=== PATIENT | male | born 1955 | race Native Hawaiian/Other Pacific Islander ===

== ENCOUNTER → 2019-07-06 | Outpatient (CLI) | payer MEDICARE, OTHER ==
[2019-06-17 19:40] VITALS: BP 169/104
[~2019-07-06] MED LIST: HYDROCHLOROTH12.5 M2 PO
[2019-07-06 11:30] LABS: BASO # 0.1 (0.02-0.10); EOS # 0.2 (0.04-0.40); EOS % 3.4 % (0.0-4.0); HEMATOCRIT 48.8 % (42.0-52.0); HEMOGLOBIN 16.9 g/dL (13.5-18.0); MEAN CELL VOLUME 90 fl (78-100); MEAN CORPUSCULAR HEMOGLOBIN 31 pg (27-31); MEAN CORPUSCULAR HGB CONC 35 g/dL (33-37); MEAN PLATELET VOLUME 9.8 fl (7.4-10.4); MONO # 0.7 (0.20-0.80); PLATELET COUNT 237 K/mm3 (130-400); RED BLOOD COUNT 5.41 M/mm3 (4.20-5.60); RED CELL DISTRIBUTION WIDTH 12.6 % (11.5-14.5)
[2019-07-06 11:38] LABS: POTASSIUM 3.6 mmol/L (3.5-5.1)
[2019-07-06 11:39] LABS: ALBUMIN 4.3 g/dL (3.4-4.8)
[2019-07-06 11:40] LABS: CALCIUM 9.6 mg/dL (8.3-10.5)
[2019-07-06 11:41] LABS: TOTAL PROTEIN 8.2 g/dL (6.2-8.1)
[2019-07-06 11:43] LABS: TOTAL BILIRUBIN 0.7 mg/dL (0.2-1.2)
[2019-07-06 12:33] LABS: ERYTHROCYTE SEDIMENTATION RATE 20 mm/hr (0-20)
== END ==
LOC: LAB 11:12
PROVIDERS: Internal Medicine
DX: Z12.5 Encounter for screening for malignant neoplasm of prostate (principal); Z12.11 Encounter for screening for malignant neoplasm of colon; I16.0 Hypertensive urgency; B19.20 Unspecified viral hepatitis C without hepatic coma; R73.02 Impaired glucose tolerance (oral)

== ENCOUNTER → 2019-10-22 | Outpatient (CLI) | payer MEDICARE, OTHER ==
[2019-06-17 19:40] VITALS: BP 169/104
[2019-10-22 14:35] LABS: POTASSIUM 3.7 mmol/L (3.5-5.1)
[2019-10-22 14:36] LABS: ALBUMIN 4.3 g/dL (3.4-4.8)
[2019-10-22 14:37] LABS: CALCIUM 9.9 mg/dL (8.3-10.5)
[2019-10-22 14:38] LABS: TOTAL PROTEIN 8.1 g/dL (6.2-8.1)
[2019-10-22 14:40] LABS: TOTAL BILIRUBIN 0.8 mg/dL (0.2-1.2)
== END ==
LOC: LAB 14:00
PROVIDERS: Internal Medicine
DX: I16.0 Hypertensive urgency (principal); R73.02 Impaired glucose tolerance (oral)

== ENCOUNTER → 2019-10-30 | Outpatient (CLI) | payer MEDICARE, OTHER ==
[2019-06-17 19:40] VITALS: BP 169/104
[2019-10-30 10:54] LABS: URINE APPEARANCE CLOUDY; URINE BILIRUBIN NEGATIVE (NEGATIVE); URINE BLOOD 250 ery/uL (NEGATIVE); URINE COLOR YELLOW; URINE GLUCOSE NEGATIVE (NEGATIVE); URINE KETONE NEGATIVE (NEGATIVE); URINE LEUKOCYTE ESTERASE NEGATIVE (NEGATIVE); URINE NITRATE NEGATIVE (NEGATIVE); URINE PROTEIN(semi-quant) 1+ mg/dL (NEGATIVE); URINE UROBILINOGEN NORMAL (NORMAL)
== END ==
LOC: LAB 10:30
PROVIDERS: Internal Medicine
DX: R35.0 Frequency of micturition (principal)

== ENCOUNTER → 2020-04-21 | Outpatient (CLI) | payer MEDICARE, OTHER ==
[2019-06-17 19:40] VITALS: BP 169/104
[2020-04-21 15:46] LABS: ALBUMIN 4.3 g/dL (3.4-4.8); POTASSIUM 4.6 mmol/L (3.5-5.1)
[2020-04-21 15:47] LABS: CALCIUM 9.6 mg/dL (8.3-10.5)
[2020-04-21 15:49] LABS: TOTAL PROTEIN 7.8 g/dL (6.2-8.1)
[2020-04-21 15:51] LABS: TOTAL BILIRUBIN 0.6 mg/dL (0.2-1.2)
[2020-04-21 16:00] LABS: BASO # 0.1 (0.02-0.10); EOS # 0.3 (0.04-0.40); EOS % 3.8 % (0.0-4.0); HEMATOCRIT 45.7 % (42.0-52.0); HEMOGLOBIN 15.7 g/dL (13.5-18.0); LYMPH# 2.7 (1.50-4.00); MEAN CELL VOLUME 94 fl (78-100); MEAN CORPUSCULAR HEMOGLOBIN 32 pg (27-31); MEAN CORPUSCULAR HGB CONC 34 g/dL (33-37); MEAN PLATELET VOLUME 9.8 fl (7.4-10.4); MONO # 0.6 (0.20-0.80); NEU # 2.9 (1.40-6.50); PLATELET COUNT 257 K/mm3 (130-400); RED BLOOD COUNT 4.88 M/mm3 (4.20-5.60); RED CELL DISTRIBUTION WIDTH 12.7 % (11.5-14.5); WHITE BLOOD COUNT 6.5 K/mm3 (4.8-10.8)
[2020-04-21 17:16] LABS: URINE APPEARANCE CLOUDY; URINE COLOR PINK
[2020-04-21 17:17] LABS: URINE BILIRUBIN NEGATIVE (NEGATIVE); URINE BLOOD 250 ery/uL (NEGATIVE); URINE GLUCOSE NEGATIVE (NEGATIVE); URINE KETONE NEGATIVE (NEGATIVE); URINE LEUKOCYTE ESTERASE 1+ (NEGATIVE); URINE NITRATE NEGATIVE (NEGATIVE); URINE PROTEIN(semi-quant) 2+ mg/dL (NEGATIVE); URINE UROBILINOGEN NORMAL (NORMAL)
== END ==
LOC: LAB 15:02
PROVIDERS: Internal Medicine
DX: I16.0 Hypertensive urgency (principal); R31.9 Hematuria, unspecified; R73.02 Impaired glucose tolerance (oral)

== ENCOUNTER → 2020-11-15 | Outpatient (CLI) | payer MEDICARE, OTHER ==
[2019-06-17 19:40] VITALS: BP 169/104
[2020-11-15 17:25] LABS: BASO # 0.1 (0.02-0.10); EOS # 0.2 (0.04-0.40); EOS % 3.4 % (0.0-4.0); HEMOGLOBIN 12.5 g/dL (13.5-18.0); LYMPH# 2.4 (1.50-4.00); MEAN CELL VOLUME 87 fl (78-100); MEAN CORPUSCULAR HEMOGLOBIN 27 pg (27-31); MEAN CORPUSCULAR HGB CONC 31 g/dL (33-37); MEAN PLATELET VOLUME 8.7 fl (7.4-10.4); MONO # 0.7 (0.20-0.80); NEU # 3.4 (1.40-6.50); PLATELET COUNT 319 K/mm3 (130-400); RED BLOOD COUNT 4.61 M/mm3 (4.20-5.60); RED CELL DISTRIBUTION WIDTH 13.3 % (11.5-14.5); WHITE BLOOD COUNT 6.8 K/mm3 (4.8-10.8)
[2020-11-15 17:34] LABS: ALBUMIN 4.1 g/dL (3.4-4.8)
[2020-11-15 17:35] LABS: POTASSIUM 4.1 mmol/L (3.5-5.1)
[2020-11-15 17:36] LABS: PROTHROMBIN TIME 9.9 SECONDS (9.0-12.0)
[2020-11-15 17:37] LABS: TOTAL PROTEIN 7.8 g/dL (6.2-8.1)
[2020-11-15 17:39] LABS: TOTAL BILIRUBIN 0.4 mg/dL (0.2-1.2)
[2020-11-15 17:45] LABS: MAGNESIUM 1.81 mg/dL (1.60-2.60)
== END ==
LOC: RAD 16:38
PROVIDERS: Internal Medicine
DX: Z01.818 Encounter for other preprocedural examination (principal)

== ENCOUNTER → 2022-06-26 | Outpatient (CLI) | payer MEDICARE, OTHER ==
[2022-06-26 15:48] LABS: BASO # 0.04 K/mm3 (0.02-0.10); EOS # 0.33 K/mm3 (0.04-0.40); EOS % 4.5 % (0.0-4.0); HEMATOCRIT 42.8 % (42.0-52.0); HEMOGLOBIN 14.4 g/dL (13.5-18.0); LYMPH# 2.37 K/mm3 (1.50-4.00); MEAN CELL VOLUME 97 fl (78-100); MEAN CORPUSCULAR HEMOGLOBIN 33 pg (27-31); MEAN CORPUSCULAR HGB CONC 34 g/dL (33-37); MEAN PLATELET VOLUME 9.1 fl (7.4-10.4); MONO # 0.74 K/mm3 (0.20-0.80); NEU # 3.77 K/mm3 (1.40-6.50); PLATELET COUNT 218 K/mm3 (130-400); RED BLOOD COUNT 4.41 M/mm3 (4.20-5.60); RED CELL DISTRIBUTION WIDTH 12.2 % (11.5-14.5); WHITE BLOOD COUNT 7.3 K/mm3 (4.8-10.8)
[2022-06-26 15:57] LABS: POTASSIUM 4.6 mmol/L (3.5-5.1)
[2022-06-26 15:58] LABS: ALBUMIN 4.2 g/dL (3.4-4.8)
[2022-06-26 15:59] LABS: CALCIUM 9.3 mg/dL (8.3-10.5)
[2022-06-26 16:00] LABS: TOTAL PROTEIN 7.7 g/dL (6.2-8.1)
[2022-06-26 16:02] LABS: TOTAL BILIRUBIN 0.4 mg/dL (0.2-1.2)
[2022-06-26 16:07] LABS: MAGNESIUM 1.89 mg/dL (1.60-2.60)
[2022-06-26 16:52] LABS: ERYTHROCYTE SEDIMENTATION RATE 17 mm/hr (0-20)
== END ==
LOC: LAB 15:32
PROVIDERS: Internal Medicine
DX: I10 Essential (primary) hypertension (principal); R73.03 Prediabetes; E78.2 Mixed hyperlipidemia

== ENCOUNTER → 2024-12-04 | Outpatient (CLI) | payer MEDICARE, OTHER ==
[2024-12-04 12:43] LABS: BASO # 0.05 K/mm3 (0.02-0.10); EOS # 0.31 K/mm3 (0.04-0.40); EOS % 5.4 % (0.0-4.0); HEMATOCRIT 48.1 % (42.0-52.0); HEMOGLOBIN 15.5 g/dL (13.5-18.0); LYMPH# 1.65 K/mm3 (1.50-4.00); MEAN CELL VOLUME 98 fl (78-100); MEAN CORPUSCULAR HEMOGLOBIN 32 pg (27-31); MEAN CORPUSCULAR HGB CONC 32 g/dL (33-37); MEAN PLATELET VOLUME 9.1 fl (7.4-10.4); MONO # 0.54 K/mm3 (0.20-0.80); NEU # 3.14 K/mm3 (1.40-6.50); PLATELET COUNT 266 K/mm3 (130-400); RED CELL DISTRIBUTION WIDTH 12.6 % (11.5-14.5); WHITE BLOOD COUNT 5.7 K/mm3 (4.8-10.8)
[2024-12-04 12:54] LABS: MAGNESIUM 1.88 mg/dL (1.60-2.60)
[2024-12-04 13:24] LABS: PH-URINE 8.5 (5.0 - 8.0); URINE APPEARANCE TURBID (CLEAR); URINE COLOR YELLOW (YELLOW); URINE GLUCOSE NEGATIVE (NEGATIVE); URINE KETONE NEGATIVE (NEGATIVE); URINE PROTEIN(semi-quant) TRACE (NEGATIVE)
[2024-12-04 13:25] LABS: URINE BILIRUBIN NEGATIVE (NEGATIVE); URINE BLOOD NEGATIVE (NEGATIVE); URINE LEUKOCYTE ESTERASE 1+ (NEGATIVE); URINE NITRATE POSITIVE (NEGATIVE); URINE WBC 16-30 /hpf (0-3)
[2024-12-04 13:26] LABS: URINE MUCUS PRESENT (NOT PRESENT)
[2024-12-08 12:46] LABS: ALBUMIN 4.7 g/dL (3.4-4.8)
[2024-12-08 12:48] LABS: CALCIUM 9.7 mg/dL (8.3-10.5)
[2024-12-08 12:49] LABS: TOTAL PROTEIN 8.6 g/dL (6.2-8.1)
[2024-12-08 12:51] LABS: TOTAL BILIRUBIN 0.5 mg/dL (0.2-1.2)
== END ==
LOC: LAB 12:05
PROVIDERS: Internal Medicine
DX: Z12.5 Encounter for screening for malignant neoplasm of prostate (principal); Z12.11 Encounter for screening for malignant neoplasm of colon; I10 Essential (primary) hypertension; R73.03 Prediabetes; K90.9 Intestinal malabsorption, unspecified; E78.2 Mixed hyperlipidemia; F52.21 Male erectile disorder

== ENCOUNTER → 2024-12-18 | Outpatient (CLI) | payer MEDICARE, OTHER | LOC: RAD 10:59 | DX: N18.30 Chronic kidney disease, stage 3 unspecified (principal) ==